=== PATIENT | female | born 1995 | race Caucasian/White ===

== ENCOUNTER 2019-09-28 15:08 | Emergency (ER) | payer MEDICAID, SELFPAY ==
[~2019-09-28] VITALS: Ht 180.3 cm; Wt 73.9 kg
[2019-09-28 15:09] VITALS: BP 121/86; Ht 180.3 cm; Wt 73.9 kg
== END 2019-09-28 15:55 | disposition home or self-care (01) ==
LOC: ED 15:08
DX: U07.1 COVID-19 (principal)
CPT/HCPCS: U0003-CS